=== PATIENT | male | born 1955 | race Two or more races ===

== ENCOUNTER 2019-06-17 08:53 | Outpatient (CLI) | payer OTHER | END 2019-06-17 08:57 | disposition home or self-care (01) | LOC: MRI 08:53 | DX: M25.512 Pain in left shoulder (principal); G20 Parkinson's disease | CPT/HCPCS: 70551 ==

== ENCOUNTER 2020-09-06 07:28 | Outpatient (CLI) | payer OTHER | END 2020-09-06 07:36 | disposition home or self-care (01) | LOC: RAD 07:28 | PROVIDERS: ATTEND Urology | DX: N20.0 Calculus of kidney (principal) ==

== ENCOUNTER 2020-10-01 07:14 | Outpatient (CLI) | payer OTHER | END 2020-10-01 15:00 | disposition home or self-care (01) | LOC: LAB 07:14 | PROVIDERS: ATTEND Urology | DX: F52.21 Male erectile disorder (principal); N20.0 Calculus of kidney ==

== ENCOUNTER 2020-10-04 07:11 | Outpatient (CLI) | payer OTHER | END 2020-10-04 07:16 | disposition home or self-care (01) | LOC: LAB 07:11 | PROVIDERS: ATTEND Urology | DX: N20.0 Calculus of kidney (principal); F52.21 Male erectile disorder ==

== ENCOUNTER 2020-12-14 14:53 | Outpatient (CLI) | payer OTHER | END 2020-12-14 14:59 | disposition home or self-care (01) | LOC: LAB 14:53 | PROVIDERS: ATTEND Urology | DX: N20.0 Calculus of kidney (principal); F52.21 Male erectile disorder ==

== ENCOUNTER 2021-02-15 08:44 | Outpatient (CLI) | payer OTHER | END 2021-02-15 08:49 | disposition home or self-care (01) | LOC: RAD 08:44 | PROVIDERS: ATTEND Urology | DX: N20.0 Calculus of kidney (principal) ==